=== PATIENT | female | born 1970 | race Caucasian/White ===

== ENCOUNTER 2023-09-05 08:42 | Day surgery (SDC) | payer BC ==
[2023-08-27 15:11] VITALS: BMI 19.8
[2023-09-05 09:08] VITALS: RESP 16
[2023-09-05 10:37] VITALS: TEMP 97.8
[2023-09-05 10:40] VITALS: BP 112/59; PULSE 76
== END 2023-09-05 10:45 | disposition home or self-care (01) ==
LOC: FASU-ENDO 08:42
PROVIDERS: ATTEND Internal Medicine Gastroenterology
PROC: 0DJD8ZZ Inspection of Lower Intestinal Tract, Via Natural or Artificial Opening Endoscopic (ICD-10-PCS; principal; 2023-09-05 09:45)
DX: Z12.11 Encounter for screening for malignant neoplasm of colon (principal); K57.30 Diverticulosis of large intestine without perforation or abscess without bleeding; K64.1 Second degree hemorrhoids; K64.8 Other hemorrhoids